=== PATIENT | male | born 1990 | race African-American/Black ===

== ENCOUNTER 2021-09-27 11:06 | Emergency (ER) | payer SELFPAY ==
[~2021-09-27] VITALS: Ht 182.9 cm; Wt 95.3 kg
[2021-09-27 11:06] VITALS: BP 139/76
--- NOTE | 2021-09-27 11:07 | NUR ---
BIBS FOR C/O LEFT SHOULDER PAIN 7/10 AND REDNESS,THINKS IT'S SPIDER BITE. WILL CONTINUE TO MONITOR THE PATIENT.
--- NOTE | 2021-09-27 12:20 | NUR ---
Patient discharged to home in stable condition. Written and verbal after care instructions given. Patient verbalizes understanding of instruction.
== END 2021-09-27 12:21 | disposition home or self-care (01) ==
LOC: ER 11:10
DX: S40.261A Insect bite (nonvenomous) of right shoulder, initial encounter (principal); S40.211A Abrasion of right shoulder, initial encounter; W57.XXXA Bitten or stung by nonvenomous insect and other nonvenomous arthropods, initial encounter; Y93.89 Activity, other specified; Y92.89 Other specified places as the place of occurrence of the external cause; Y99.8 Other external cause status